=== PATIENT | female | born 2000 | race Two or more races ===

== ENCOUNTER 2022-07-10 16:54 | Emergency (ER) | payer BC ==
[~2022-07-10] VITALS: Ht 170.2 cm; Wt 52.2 kg
== END 2022-07-10 20:18 | disposition home or self-care (01) ==
LOC: ER 16:54
DX: S80.912A Unspecified superficial injury of left knee, initial encounter (principal); S62.621A Displaced fracture of middle phalanx of left index finger, initial encounter for closed fracture; X58.XXXA Exposure to other specified factors, initial encounter; Y93.9 Activity, unspecified; Y92.9 Unspecified place or not applicable